=== PATIENT | female | born 1980 | race Caucasian/White ===

== ENCOUNTER 2023-10-06 15:37 | Inpatient (IN) | payer OTHER, SELFPAY ==
[~2023-10-06 15:37] MED LIST: Iopamidol-370 76% 500 ML MDV (1 ML CHARGE) ONE
[2023-10-06] MEDS ORDERED: HYDROmorphone 0.5 MG/0.5 ML SYRINGE ONE ×2 (15:49→19:36)
[2023-10-06 16:14] LABS: #Basophils 0.1 thou/uL (0.0-0.2); #Eosinphils 0.3 thou/uL (0.0-0.7); #Monocytes 1.3 thou/uL (0.11-0.59); %Basophils 0.4 % (0.0-1.0); %Eosinophils 1.4 % (0.0-10.0); %Monocytes 5.2 % (0.0-10.0); %Neutrophils 79.5 % (42.0-75.0); Hematocrit 42.6 % (36.0-47.0); Hemoglobin 13.2 g/dL (12.0-16.0); Mean Corpuscular Hemoglobin 29.5 pg (27.0-31.0); Mean Corpuscular Volume 95.1 fl (78.0-98.0); Mean Platelet Volume 9.3 fL (7.4-10.4); Platelet Count 349 10x3/uL (130-400); RBC Distribution Width 12.5 % (11.5-14.5); Red Blood Cell (RBC) Count 4.48 mill/uL (4.20-5.40); White Blood Cell (WBC) Count 23.9 10x3/uL (4.8-10.8)
[2023-10-06] MEDS ORDERED: Lidocaine 1% PF 5 ML VIAL ONE (16:15)
[2023-10-06] MEDS ORDERED: Ondansetron PF 4 MG/2 ML Vial ONE (16:15)
[2023-10-06] MEDS ORDERED: CEFAZOLIN 2 GM VIAL ONE (16:15)
[2023-10-06] MEDS ORDERED: Boostrix 0.5 ML (Tdap) VIAL (>/=7 yrs of age) ONE (16:16)
[2023-10-06] MEDS ORDERED: Sodium Chloride 0.9% 100 ML ONE (16:16)
[2023-10-06] MEDS ORDERED: Midazolam HCl 2 mg/2 ml Vial ONE (16:25)
[2023-10-06 16:42] LABS: ALT (SGPT) 39 U/L (8-55); AST (SGOT) 68 U/L (5-34); Acetaminophen Less than 10 mcg/mL (10.0-30.0); Albumin 3.4 g/dL (3.5-5.0); Alcohol Less than 10.0 mg/dL (Less than 10); Alkaline Phosphatase 121 U/L (40-110); Anion Gap 14 mmol/L (10-20); BUN (Urea Nitrogen) 10 mg/dL (7.0-18.7); Bilirubin, Total 0.3 mg/dL (0.2-1.2); Calc. Creatinine Clearance 0 mL/min (70-130); Calcium 8.1 mg/dL (7.8-10.44); Carbon Dioxide 18 mmol/L (22-29); Chloride 105 mmol/L (98-107); Estimated GFR 106; Globulin 2.7 g/dL (2.4-3.5); Glucose 147 mg/dL (70-105); Magnesium 1.8 mg/dL (1.6-2.6); Protein, Total 6.1 g/dL (6.0-8.3); Salicylate 8.2 mg/dL (15.0-30.0); Sodium 133 mmol/L (136-145)
[2023-10-06] MEDS ORDERED: traMADol HCl 50 MG TAB PO PRN (18:18)
[2023-10-06] MEDS ORDERED: Ondansetron PF 4 MG/2 ML Vial IVP PRN (18:19)
[2023-10-06] MEDS ORDERED: Morphine 2 MG/ML VIAL SLOW IVP PRN (18:19)
[2023-10-06] MEDS ORDERED: Sodium Chloride 0.9% 1,000 ML IV SCH (18:30)
[2023-10-06] MEDS: Acetaminophen 500 MG TAB PO SCH ×2 (20:30→23:43)
[2023-10-06] MEDS ORDERED: Ipratropium/Albuterol 3 ML NEB NEB SCH (21:00)
[2023-10-06] MEDS: Morphine 4 MG/ML VIAL SLOW IVP PRN (21:49)
[2023-10-06] MEDS: Amoxicillin/Potassium Clav 500 MG TAB PO SCH (21:49)
[2023-10-06] MEDS: Gabapentin 300 MG CAP PO SCH (21:50)
[2023-10-06] MEDS: Famotidine 20 MG TAB PO SCH (21:50)
[2023-10-06] MEDS: Cyclobenzaprine 10 MG TAB PO PRN (21:50)
[2023-10-06] MEDS: Sodium Chloride 0.9% 1,000 ML IV SCH (21:51)
[2023-10-06] MEDS: Senokot S 8.6-50 MG TAB PO SCH (21:52)
[2023-10-06] MEDS: traMADol HCl 50 MG TAB PO SCH (23:42)
[2023-10-06] MEDS ORDERED: Ketorolac Tromethamine 30 MG (1 mL) VIAL IVP SCH (23:59)
[2023-10-07 02:59] VITALS: BMI 45.8
[2023-10-07] MEDS: Morphine 4 MG/ML VIAL SLOW IVP PRN ×3 (04:46→08:40)
[2023-10-07] MEDS: Sodium Chloride 0.9% 1,000 ML IV SCH ×4 (04:46→21:14)
[2023-10-07] MEDS: Acetaminophen 500 MG TAB PO SCH ×3 (05:59→17:32)
[2023-10-07] MEDS: traMADol HCl 50 MG TAB PO SCH (05:59)
[2023-10-07] MEDS ORDERED: Ipratropium/Albuterol 3 ML NEB NEB SCH (07:30)
[2023-10-07] MEDS: Polyethylene Glycol 3350 17 GM Packet PO SCH (08:35)
[2023-10-07] MEDS: Gabapentin 300 MG CAP PO SCH ×3 (08:35→20:21)
[2023-10-07] MEDS: Senokot S 8.6-50 MG TAB PO SCH ×2 (08:35→20:20)
[2023-10-07] MEDS: Famotidine 20 MG TAB PO SCH ×2 (08:35→20:20)
[2023-10-07] MEDS: Amoxicillin/Potassium Clav 500 MG TAB PO SCH ×2 (08:35→20:20)
[2023-10-07] MEDS ORDERED: Naloxone HCl 0.4 mg/ml Vial IV PRN (08:44)
[2023-10-07] MEDS ORDERED: Ondansetron PF 4 MG/2 ML Vial IVP PRN (08:44)
[2023-10-07] MEDS ORDERED: HYDROmorphone/PF 10 MG in Sodium Chloride 0.9% 99 ML IV PRN (08:44)
[2023-10-07] MEDS ORDERED: Promethazine HCl 25 MG/ML VIAL IM PRN (08:44)
[2023-10-07] MEDS ORDERED: diphenhydrAMINE 50 MG/ML VIAL IM PRN (08:44)
[2023-10-07] MEDS ORDERED: Communication Order-Pharmacy FS SCH (08:45)
[2023-10-07 10:21] LABS: #Eosinphils 0.1 thou/uL (0.0-0.7); #Monocytes 0.9 thou/uL (0.11-0.59); #Neutrophils 7.4 thou/uL (1.40-6.50); %Basophils 0.2 % (0.0-1.0); %Eosinophils 0.8 % (0.0-10.0); %Lymphocytes 14.7 % (21.0-51.0); %Monocytes 8.6 % (0.0-10.0); %Neutrophils 75.3 % (42.0-75.0); Hemoglobin 11.4 g/dL (12.0-16.0); Mean Corpuscular HGB CONC 31.7 g/dL (32.0-36.0); Mean Corpuscular Hemoglobin 28.9 pg (27.0-31.0); Mean Platelet Volume 9.3 fL (7.4-10.4); Platelet Count 277 10x3/uL (130-400); RBC Distribution Width 12.8 % (11.5-14.5); Red Blood Cell (RBC) Count 3.94 mill/uL (4.20-5.40); White Blood Cell (WBC) Count 9.9 10x3/uL (4.8-10.8)
[2023-10-07 10:24] LABS: Mean Corpuscular Volume 91.4 fl (78.0-98.0)
[2023-10-07 10:39] LABS: Anion Gap 15 mmol/L (10-20); BUN (Urea Nitrogen) 12 mg/dL (7.0-18.7); CK (CPK) 3918 U/L (29-168); Calc. Creatinine Clearance 139 mL/min (70-130); Calcium 7.6 mg/dL (7.8-10.44); Carbon Dioxide 19 mmol/L (22-29); Chloride 105 mmol/L (98-107); Estimated GFR 81; Glucose 126 mg/dL (70-105); Potassium 4.5 mmol/L (3.5-5.1); Sodium 134 mmol/L (136-145)
[2023-10-07 10:39] LABS: PTT 28.9 sec (22.9-36.1)
[2023-10-07] MEDS ORDERED: Morphine 4 MG/ML VIAL SLOW IVP SCH (11:38)
[2023-10-07] MEDS: Ipratropium/Albuterol 3 ML NEB NEB SCH ×2 (13:47→19:04)
[2023-10-07] MEDS ORDERED: traMADol HCl 50 MG TAB PO SCH (18:00)
[2023-10-07] MEDS ORDERED: traMADol HCl 50 MG TAB PO PRN (19:44)
[2023-10-08] MEDS: Acetaminophen 500 MG TAB PO SCH ×2 (00:14→05:30)
[2023-10-08] MEDS: Cyclobenzaprine 10 MG TAB PO PRN (03:40)
[2023-10-08] MEDS: Morphine 2 MG/ML VIAL SLOW IVP PRN ×4 (03:43→20:14)
[2023-10-08] MEDS: Sodium Chloride 0.9% 1,000 ML IV SCH (05:01)
[2023-10-08] MEDS ORDERED: traMADol HCl 50 MG TAB PO SCH (06:00)
[2023-10-08] MEDS ORDERED: Acetaminophen/Codeine 30-300mg Tablet PO PRN (06:59)
[2023-10-08 07:23] LABS: Anion Gap 13 mmol/L (10-20); BUN (Urea Nitrogen) 7 mg/dL (7.0-18.7); CK (CPK) 106 U/L (29-168); Calc. Creatinine Clearance 130 mL/min (70-130); Calcium 8.8 mg/dL (7.8-10.44); Carbon Dioxide 28 mmol/L (22-29); Chloride 103 mmol/L (98-107); Estimated GFR 75; Glucose 78 mg/dL (70-105); Magnesium 2.1 mg/dL (1.6-2.6); Phosphorus 2.9 mg/dL (2.3-4.7); Potassium 3.5 mmol/L (3.5-5.1); Sodium 140 mmol/L (136-145)
[2023-10-08] MEDS: Ipratropium/Albuterol 3 ML NEB NEB SCH ×3 (07:45→18:52)
[2023-10-08] MEDS: Polyethylene Glycol 3350 17 GM Packet PO SCH (08:29)
[2023-10-08] MEDS: Amoxicillin/Potassium Clav 500 MG TAB PO SCH ×2 (08:29→20:14)
[2023-10-08] MEDS: Gabapentin 300 MG CAP PO SCH ×3 (08:30→20:15)
[2023-10-08] MEDS: Saccharomyces boulardii 250 MG CAP PO SCH (08:30)
[2023-10-08] MEDS: Famotidine 20 MG TAB PO SCH ×2 (08:31→20:15)
[2023-10-08] MEDS: DULoxetine 30 MG CAP PO SCH (08:31)
[2023-10-08] MEDS: Senokot S 8.6-50 MG TAB PO SCH ×2 (08:31→20:14)
[2023-10-08] MEDS ORDERED: Enoxaparin 40 MG (0.4 mL) SYRINGE SC SCH (09:00)
[2023-10-08 09:55] LABS: #Basophils 0.1 thou/uL (0.0-0.2); #Monocytes 1.2 thou/uL (0.11-0.59); %Basophils 0.4 % (0.0-1.0); %Eosinophils 0.3 % (0.0-10.0); %Lymphocytes 10.5 % (21.0-51.0); %Monocytes 10.4 % (0.0-10.0); %Neutrophils 77.8 % (42.0-75.0); Hematocrit 28.9 % (36.0-47.0); Hemoglobin 9.1 g/dL (12.0-16.0); Mean Corpuscular HGB CONC 31.5 g/dL (32.0-36.0); Mean Corpuscular Hemoglobin 29.5 pg (27.0-31.0); Mean Corpuscular Volume 93.8 fl (78.0-98.0); Mean Platelet Volume 9.5 fL (7.4-10.4); Platelet Count 203 10x3/uL (130-400); RBC Distribution Width 12.8 % (11.5-14.5); Red Blood Cell (RBC) Count 3.08 mill/uL (4.20-5.40); White Blood Cell (WBC) Count 11.6 10x3/uL (4.8-10.8)
[2023-10-08] MEDS ORDERED: HYDROcodone/Acetaminophen 5/325 mg Tablet PO SCH (10:30)
[2023-10-08] MEDS: HYDROcodone/Acetaminophen 5/325 mg Tablet PO SCH ×4 (10:41→22:27)
[2023-10-08] MEDS ORDERED: Acetaminophen 325 MG TAB PO SCH ×2 (12:00)
[2023-10-09] MEDS: Morphine 2 MG/ML VIAL SLOW IVP PRN ×5 (01:32→19:59)
[2023-10-09] MEDS: HYDROcodone/Acetaminophen 5/325 mg Tablet PO SCH ×6 (02:36→22:54)
[2023-10-09 06:58] LABS: #Eosinphils 0.1 thou/uL (0.0-0.7); #Monocytes 1.4 thou/uL (0.11-0.59); #Neutrophils 13.4 thou/uL (1.40-6.50); %Basophils 0.3 % (0.0-1.0); %Eosinophils 0.4 % (0.0-10.0); %Lymphocytes 5.3 % (21.0-51.0); %Monocytes 8.9 % (0.0-10.0); %Neutrophils 84.3 % (42.0-75.0); Hematocrit 29.8 % (36.0-47.0); Hemoglobin 9.5 g/dL (12.0-16.0); Mean Corpuscular HGB CONC 31.9 g/dL (32.0-36.0); Mean Corpuscular Hemoglobin 28.7 pg (27.0-31.0); Mean Platelet Volume 9.7 fL (7.4-10.4); Platelet Count 255 10x3/uL (130-400); RBC Distribution Width 12.9 % (11.5-14.5); Red Blood Cell (RBC) Count 3.31 mill/uL (4.20-5.40); White Blood Cell (WBC) Count 15.9 10x3/uL (4.8-10.8)
[2023-10-09] MEDS ORDERED: Lidocaine 1% (PF) 30 ML VIAL ONE (07:14)
[2023-10-09] MEDS ORDERED: Bupivacaine PF 0.5% 30 ML VIAL FS SCH (07:30)
[2023-10-09] MEDS: Ipratropium/Albuterol 3 ML NEB NEB SCH ×3 (07:58→22:40)
[2023-10-09] MEDS ORDERED: Enoxaparin 40 MG (0.4 mL) SYRINGE SC SCH ×2 (09:00)
[2023-10-09] MEDS: Famotidine 20 MG TAB PO SCH ×2 (09:43→19:59)
[2023-10-09] MEDS: Amoxicillin/Potassium Clav 500 MG TAB PO SCH ×2 (09:43→19:59)
[2023-10-09] MEDS: DULoxetine 30 MG CAP PO SCH (09:43)
[2023-10-09] MEDS: Saccharomyces boulardii 250 MG CAP PO SCH (09:43)
[2023-10-09] MEDS: Gabapentin 300 MG CAP PO SCH ×3 (09:43→19:59)
[2023-10-09] MEDS: Polyethylene Glycol 3350 17 GM Packet PO SCH (09:44)
[2023-10-09] MEDS: Senokot S 8.6-50 MG TAB PO SCH ×2 (09:44→20:00)
[2023-10-09] MEDS: Cyclobenzaprine 10 MG TAB PO PRN ×2 (12:50→19:59)
[2023-10-10] MEDS: HYDROcodone/Acetaminophen 5/325 mg Tablet PO SCH ×3 (02:54→10:25)
[2023-10-10] MEDS: Ipratropium/Albuterol 3 ML NEB NEB SCH ×3 (07:42→18:51)
[2023-10-10 08:06] LABS: #Eosinphils 0.3 thou/uL (0.0-0.7); #Monocytes 1.2 thou/uL (0.11-0.59); #Neutrophils 11.3 thou/uL (1.40-6.50); %Basophils 0.2 % (0.0-1.0); %Eosinophils 1.9 % (0.0-10.0); %Lymphocytes 6.6 % (21.0-51.0); %Monocytes 8.7 % (0.0-10.0); %Neutrophils 81.9 % (42.0-75.0); Hematocrit 27.9 % (36.0-47.0); Hemoglobin 8.9 g/dL (12.0-16.0); Mean Corpuscular HGB CONC 31.9 g/dL (32.0-36.0); Mean Corpuscular Hemoglobin 29.4 pg (27.0-31.0); Mean Corpuscular Volume 92.1 fl (78.0-98.0); Mean Platelet Volume 9.8 fL (7.4-10.4); Platelet Count 288 10x3/uL (130-400); RBC Distribution Width 13.2 % (11.5-14.5); Red Blood Cell (RBC) Count 3.03 mill/uL (4.20-5.40); White Blood Cell (WBC) Count 13.7 10x3/uL (4.8-10.8)
[2023-10-10 08:29] LABS: ALT (SGPT) 30 U/L (8-55); AST (SGOT) 24 U/L (5-34); Albumin 2.7 g/dL (3.5-5.0); Alkaline Phosphatase 88 U/L (40-110); Anion Gap 11 mmol/L (10-20); BUN (Urea Nitrogen) 6 mg/dL (7.0-18.7); Calc. Creatinine Clearance 223 mL/min (70-130); Calcium 7.8 mg/dL (7.8-10.44); Carbon Dioxide 26 mmol/L (22-29); Chloride 98 mmol/L (98-107); Estimated GFR 115; Globulin 2.8 g/dL (2.4-3.5); Glucose 146 mg/dL (70-105); Potassium 3.9 mmol/L (3.5-5.1); Protein, Total 5.5 g/dL (6.0-8.3); Sodium 131 mmol/L (136-145)
[2023-10-10] MEDS: Polyethylene Glycol 3350 17 GM Packet PO SCH (08:34)
[2023-10-10] MEDS: Senokot S 8.6-50 MG TAB PO SCH ×2 (08:34→20:45)
[2023-10-10] MEDS: Cyclobenzaprine 10 MG TAB PO PRN ×2 (08:35→20:44)
[2023-10-10] MEDS: Saccharomyces boulardii 250 MG CAP PO SCH (08:35)
[2023-10-10] MEDS: Famotidine 20 MG TAB PO SCH ×2 (08:35→20:44)
[2023-10-10] MEDS: DULoxetine 30 MG CAP PO SCH (08:35)
[2023-10-10] MEDS: Gabapentin 300 MG CAP PO SCH ×3 (08:35→20:44)
[2023-10-10] MEDS: Enoxaparin 40 MG (0.4 mL) SYRINGE SC SCH (08:35)
[2023-10-10] MEDS: Amoxicillin/Potassium Clav 500 MG TAB PO SCH ×2 (08:36→20:44)
[2023-10-10] MEDS: Morphine 2 MG/ML VIAL SLOW IVP PRN (11:17)
[2023-10-10] MEDS ORDERED: Zolpidem Tartrate 5 MG TAB PO PRN (12:15)
[2023-10-10] MEDS ORDERED: Naloxone HCl 0.4 mg/ml Vial IV PRN (12:15)
[2023-10-10] MEDS ORDERED: diphenhydrAMINE 25 MG CAP PO PRN (12:15)
[2023-10-10] MEDS ORDERED: Promethazine HCl 25 MG/ML VIAL IM PRN (12:15)
[2023-10-10] MEDS ORDERED: diphenhydrAMINE 50 MG/ML VIAL IM/IV PRN (12:15)
[2023-10-10] MEDS ORDERED: Ondansetron PF 4 MG/2 ML Vial IVP PRN (12:15)
[2023-10-10] MEDS: HYDROmorphone/PF 10 MG in Sodium Chloride 0.9% 99 ML IVPB PRN (12:58)
[2023-10-11 07:46] LABS: #Eosinphils 0.2 thou/uL (0.0-0.7); #Monocytes 1.3 thou/uL (0.11-0.59); #Neutrophils 9.6 thou/uL (1.40-6.50); %Basophils 0.2 % (0.0-1.0); %Eosinophils 1.5 % (0.0-10.0); %Lymphocytes 8.8 % (21.0-51.0); %Monocytes 10.4 % (0.0-10.0); %Neutrophils 77.6 % (42.0-75.0); Hematocrit 26.6 % (36.0-47.0); Hemoglobin 8.5 g/dL (12.0-16.0); Mean Corpuscular Hemoglobin 29.2 pg (27.0-31.0); Mean Corpuscular Volume 91.4 fl (78.0-98.0); Mean Platelet Volume 9.4 fL (7.4-10.4); Platelet Count 283 10x3/uL (130-400); RBC Distribution Width 13.5 % (11.5-14.5); Red Blood Cell (RBC) Count 2.91 mill/uL (4.20-5.40); White Blood Cell (WBC) Count 12.4 10x3/uL (4.8-10.8)
[2023-10-11] MEDS: Ipratropium/Albuterol 3 ML NEB NEB SCH ×3 (07:53→22:35)
[2023-10-11 08:11] LABS: Anion Gap 13 mmol/L (10-20); BUN (Urea Nitrogen) 6 mg/dL (7.0-18.7); Calc. Creatinine Clearance 240 mL/min (70-130); Calcium 7.6 mg/dL (7.8-10.44); Carbon Dioxide 24 mmol/L (22-29); Chloride 97 mmol/L (98-107); Estimated GFR 117; Glucose 119 mg/dL (70-105); Potassium 3.7 mmol/L (3.5-5.1); Sodium 130 mmol/L (136-145)
[2023-10-11] MEDS: Amoxicillin/Potassium Clav 500 MG TAB PO SCH ×2 (09:12→22:35)
[2023-10-11] MEDS: Senokot S 8.6-50 MG TAB PO SCH ×2 (09:12→22:34)
[2023-10-11] MEDS: Famotidine 20 MG TAB PO SCH ×2 (09:13→22:35)
[2023-10-11] MEDS: Enoxaparin 40 MG (0.4 mL) SYRINGE SC SCH (09:13)
[2023-10-11] MEDS: Gabapentin 300 MG CAP PO SCH ×3 (09:13→22:34)
[2023-10-11] MEDS: DULoxetine 30 MG CAP PO SCH (09:13)
[2023-10-11] MEDS: Saccharomyces boulardii 250 MG CAP PO SCH (09:13)
[2023-10-11] MEDS: Polyethylene Glycol 3350 17 GM Packet PO SCH (09:14)
[2023-10-11] MEDS: Cyclobenzaprine 10 MG TAB PO PRN (09:15)
[2023-10-12] MEDS: HYDROmorphone/PF 10 MG in Sodium Chloride 0.9% 99 ML IVPB PRN (05:41)
[2023-10-12] MEDS: Amoxicillin/Potassium Clav 500 MG TAB PO SCH ×2 (09:09→20:31)
[2023-10-12] MEDS: Famotidine 20 MG TAB PO SCH ×2 (09:09→20:31)
[2023-10-12] MEDS: Saccharomyces boulardii 250 MG CAP PO SCH (09:09)
[2023-10-12] MEDS: DULoxetine 30 MG CAP PO SCH (09:10)
[2023-10-12] MEDS: Gabapentin 300 MG CAP PO SCH ×3 (09:10→20:31)
[2023-10-12] MEDS: Enoxaparin 40 MG (0.4 mL) SYRINGE SC SCH (09:11)
[2023-10-12] MEDS: Polyethylene Glycol 3350 17 GM Packet PO SCH (09:11)
[2023-10-12] MEDS: Senokot S 8.6-50 MG TAB PO SCH ×2 (09:11→20:35)
[2023-10-12] MEDS ORDERED: traMADol HCl 50 MG TAB PO PRN (09:38)
[2023-10-12] MEDS: Ipratropium/Albuterol 3 ML NEB NEB SCH ×3 (09:54→23:12)
[2023-10-12] MEDS: HYDROcodone/Acetaminophen 10/325 mg Tablet PO PRN ×4 (13:34→22:20)
[2023-10-12] MEDS: Cyclobenzaprine 10 MG TAB PO PRN (20:31)
[2023-10-13] MEDS: HYDROcodone/Acetaminophen 10/325 mg Tablet PO PRN ×4 (03:32→20:22)
[2023-10-13] MEDS: Cyclobenzaprine 10 MG TAB PO PRN ×2 (03:33→17:20)
[2023-10-13 04:05] LABS: #Eosinphils 0.4 thou/uL (0.0-0.7); #Monocytes 0.8 thou/uL (0.11-0.59); #Neutrophils 6.5 thou/uL (1.40-6.50); %Basophils 0.4 % (0.0-1.0); %Lymphocytes 15.8 % (21.0-51.0); %Monocytes 8.1 % (0.0-10.0); %Neutrophils 69.4 % (42.0-75.0); Hematocrit 25.9 % (36.0-47.0); Hemoglobin 8.2 g/dL (12.0-16.0); Mean Corpuscular HGB CONC 31.7 g/dL (32.0-36.0); Mean Corpuscular Hemoglobin 28.9 pg (27.0-31.0); Mean Corpuscular Volume 91.2 fl (78.0-98.0); Mean Platelet Volume 9.4 fL (7.4-10.4); Platelet Count 283 10x3/uL (130-400); RBC Distribution Width 13.9 % (11.5-14.5); Red Blood Cell (RBC) Count 2.84 mill/uL (4.20-5.40); White Blood Cell (WBC) Count 9.4 10x3/uL (4.8-10.8)
[2023-10-13 04:26] LABS: Anion Gap 11 mmol/L (10-20); BUN (Urea Nitrogen) 5 mg/dL (7.0-18.7); Calc. Creatinine Clearance 227 mL/min (70-130); Calcium 7.7 mg/dL (7.8-10.44); Carbon Dioxide 26 mmol/L (22-29); Chloride 101 mmol/L (98-107); Estimated GFR 116; Glucose 115 mg/dL (70-105); Potassium 3.3 mmol/L (3.5-5.1); Sodium 135 mmol/L (136-145)
[2023-10-13] MEDS: Ipratropium/Albuterol 3 ML NEB NEB SCH ×3 (08:12→20:38)
[2023-10-13] MEDS: fentaNYL 50 mcg/mL 1 mL Vial SLOW IVP PRN ×2 (09:37→17:19)
[2023-10-13] MEDS: Saccharomyces boulardii 250 MG CAP PO SCH (09:44)
[2023-10-13] MEDS: Amoxicillin/Potassium Clav 500 MG TAB PO SCH ×2 (09:45→20:20)
[2023-10-13] MEDS: Famotidine 20 MG TAB PO SCH ×2 (09:45→20:21)
[2023-10-13] MEDS: DULoxetine 30 MG CAP PO SCH (09:45)
[2023-10-13] MEDS: Gabapentin 300 MG CAP PO SCH ×3 (09:45→20:20)
[2023-10-13] MEDS: Enoxaparin 40 MG (0.4 mL) SYRINGE SC SCH (09:45)
[2023-10-13] MEDS: Polyethylene Glycol 3350 17 GM Packet PO SCH (09:46)
[2023-10-13] MEDS: Senokot S 8.6-50 MG TAB PO SCH ×2 (09:46→20:21)
[2023-10-14] MEDS: HYDROcodone/Acetaminophen 10/325 mg Tablet PO PRN ×4 (00:55→19:12)
[2023-10-14] MEDS: traMADol HCl 50 MG TAB PO PRN ×3 (03:00→21:22)
[2023-10-14] MEDS: Cyclobenzaprine 10 MG TAB PO PRN ×2 (03:00→21:24)
[2023-10-14] MEDS: DULoxetine 30 MG CAP PO SCH (08:22)
[2023-10-14] MEDS: Saccharomyces boulardii 250 MG CAP PO SCH (08:22)
[2023-10-14] MEDS: Enoxaparin 40 MG (0.4 mL) SYRINGE SC SCH (08:22)
[2023-10-14] MEDS: Gabapentin 300 MG CAP PO SCH ×3 (08:23→20:34)
[2023-10-14] MEDS: Famotidine 20 MG TAB PO SCH ×2 (08:23→20:34)
[2023-10-14] MEDS: Polyethylene Glycol 3350 17 GM Packet PO SCH (08:23)
[2023-10-14] MEDS: Senokot S 8.6-50 MG TAB PO SCH ×2 (08:24→20:35)
[2023-10-14] MEDS: Ipratropium/Albuterol 3 ML NEB NEB SCH ×3 (10:31→19:57)
[2023-10-14] MEDS: fentaNYL 50 mcg/mL 1 mL Vial SLOW IVP PRN (17:24)
[2023-10-15] MEDS: HYDROcodone/Acetaminophen 10/325 mg Tablet PO PRN ×4 (00:11→19:10)
[2023-10-15] MEDS: traMADol HCl 50 MG TAB PO PRN ×3 (02:53→16:57)
[2023-10-15] MEDS: Ipratropium/Albuterol 3 ML NEB NEB SCH ×3 (07:05→19:33)
[2023-10-15] MEDS: Enoxaparin 40 MG (0.4 mL) SYRINGE SC SCH (07:54)
[2023-10-15] MEDS: Famotidine 20 MG TAB PO SCH ×2 (07:54→21:20)
[2023-10-15] MEDS: DULoxetine 30 MG CAP PO SCH (07:54)
[2023-10-15] MEDS: Saccharomyces boulardii 250 MG CAP PO SCH (07:54)
[2023-10-15] MEDS: Gabapentin 300 MG CAP PO SCH ×3 (07:55→21:21)
[2023-10-15] MEDS: Senokot S 8.6-50 MG TAB PO SCH ×2 (07:55→21:21)
[2023-10-15] MEDS: Polyethylene Glycol 3350 17 GM Packet PO SCH (07:55)
[2023-10-15] MEDS: Cyclobenzaprine 10 MG TAB PO PRN ×2 (07:59→21:20)
[2023-10-16] MEDS: HYDROcodone/Acetaminophen 10/325 mg Tablet PO PRN ×6 (00:22→23:52)
[2023-10-16 08:15] LABS: #Eosinphils 0.6 thou/uL (0.0-0.7); #Monocytes 0.7 thou/uL (0.11-0.59); #Neutrophils 7.9 thou/uL (1.40-6.50); %Basophils 0.3 % (0.0-1.0); %Eosinophils 5.6 % (0.0-10.0); %Lymphocytes 13.7 % (21.0-51.0); %Monocytes 6.3 % (0.0-10.0); %Neutrophils 69.9 % (42.0-75.0); Hematocrit 26.6 % (36.0-47.0); Hemoglobin 8.3 g/dL (12.0-16.0); Mean Corpuscular HGB CONC 31.2 g/dL (32.0-36.0); Mean Corpuscular Hemoglobin 29.6 pg (27.0-31.0); Mean Platelet Volume 9.3 fL (7.4-10.4); Platelet Count 333 10x3/uL (130-400); RBC Distribution Width 15.5 % (11.5-14.5); White Blood Cell (WBC) Count 11.4 10x3/uL (4.8-10.8)
[2023-10-16 08:56] LABS: ALT (SGPT) 21 U/L (8-55); AST (SGOT) 22 U/L (5-34); Albumin 2.9 g/dL (3.5-5.0); Alkaline Phosphatase 118 U/L (40-110); Anion Gap 12 mmol/L (10-20); BUN (Urea Nitrogen) 6 mg/dL (7.0-18.7); Bilirubin, Total 0.7 mg/dL (0.2-1.2); Calc. Creatinine Clearance 223 mL/min (70-130); Calcium 8.3 mg/dL (7.8-10.44); Carbon Dioxide 27 mmol/L (22-29); Chloride 101 mmol/L (98-107); Estimated GFR 115; Globulin 2.9 g/dL (2.4-3.5); Glucose 100 mg/dL (70-105); Potassium 3.9 mmol/L (3.5-5.1); Protein, Total 5.8 g/dL (6.0-8.3); Sodium 136 mmol/L (136-145)
[2023-10-16] MEDS: Famotidine 20 MG TAB PO SCH ×2 (09:26→21:35)
[2023-10-16] MEDS: Enoxaparin 40 MG (0.4 mL) SYRINGE SC SCH (09:27)
[2023-10-16] MEDS: DULoxetine 30 MG CAP PO SCH (09:27)
[2023-10-16] MEDS: Saccharomyces boulardii 250 MG CAP PO SCH (09:27)
[2023-10-16] MEDS: Senokot S 8.6-50 MG TAB PO SCH ×2 (09:28→21:35)
[2023-10-16] MEDS: Polyethylene Glycol 3350 17 GM Packet PO SCH (09:28)
[2023-10-16] MEDS: Gabapentin 300 MG CAP PO SCH ×3 (09:28→21:34)
[2023-10-16] MEDS: Ipratropium/Albuterol 3 ML NEB NEB SCH ×2 (10:53→13:58)
[2023-10-16] MEDS ORDERED: Ipratropium/Albuterol 3 ML NEB NEB PRN (14:20)
[2023-10-16] MEDS: Cyclobenzaprine 10 MG TAB PO PRN ×2 (15:16→21:35)
[2023-10-17] MEDS: HYDROcodone/Acetaminophen 10/325 mg Tablet PO PRN ×2 (06:41→13:33)
[2023-10-17] MEDS: Cyclobenzaprine 10 MG TAB PO PRN (06:41)
[2023-10-17] MEDS: Senokot S 8.6-50 MG TAB PO SCH (09:41)
[2023-10-17] MEDS: Gabapentin 300 MG CAP PO SCH (09:41)
[2023-10-17] MEDS: Enoxaparin 40 MG (0.4 mL) SYRINGE SC SCH (09:42)
[2023-10-17] MEDS: Famotidine 20 MG TAB PO SCH (09:42)
[2023-10-17] MEDS: Polyethylene Glycol 3350 17 GM Packet PO SCH ×2 (09:42→09:51)
[2023-10-17] MEDS: Saccharomyces boulardii 250 MG CAP PO SCH (09:42)
[2023-10-17] MEDS: DULoxetine 30 MG CAP PO SCH (09:42)
[2023-10-17 13:04] VITALS: BP 137/76; TEMP 98
== END 2023-10-17 14:21 | disposition home or self-care (01) | DRG 157 ==
LOC: ERS 15:37 → SURG A 18:22
PROVIDERS: ADMIT Surgery; ATTEND Surgery
PROC: 0W9930Z Drainage of Right Pleural Cavity with Drainage Device, Percutaneous Approach (ICD-10-PCS; principal; 2023-10-09)
DX: S02.40DA Maxillary fracture, left side, initial encounter for closed fracture (principal); S27.2XXA Traumatic hemopneumothorax, initial encounter; S22.41XA Multiple fractures of ribs, right side, initial encounter for closed fracture; S22.088A Other fracture of T11-T12 vertebra, initial encounter for closed fracture; S12.690A Other displaced fracture of seventh cervical vertebra, initial encounter for closed fracture; S22.20XA Unspecified fracture of sternum, initial encounter for closed fracture; Z68.42 Body mass index [BMI] 45.0-49.9, adult; S22.078A Other fracture of T9-T10 vertebra, initial encounter for closed fracture; I10 Essential (primary) hypertension; F17.210 Nicotine dependence, cigarettes, uncomplicated; S42.111A Displaced fracture of body of scapula, right shoulder, initial encounter for closed fracture; E66.01 Morbid (severe) obesity due to excess calories; Z88.8 Allergy status to other drugs, medicaments and biological substances; Z90.49 Acquired absence of other specified parts of digestive tract; Z98.890 Other specified postprocedural states; V49.9XXA Car occupant (driver) (passenger) injured in unspecified traffic accident, initial encounter
CPT/HCPCS: 12004; 12015; 36415; 70450; 70486; 71045; 71250; 71260; 72072; 72125; 74177; 80048; 80053; 80307; 82550; 83735; 84100; 85025; 85610; 85730; 86850; 86900; 86901; 90471; 90715; 94640; 96365; 96375; 96376; G0390; J1170; J1650; J2001; J2250; J2270; J2272; J2405; J3010; J3490; J7050; J7620; Q9967; S0020

== ENCOUNTER 2023-12-07 16:49 | Emergency (ER) | payer SELFPAY | END 2023-12-07 18:38 | disposition home or self-care (01) | LOC: ERS 16:49 | DX: S22.009A Unspecified fracture of unspecified thoracic vertebra, initial encounter for closed fracture (principal); F17.210 Nicotine dependence, cigarettes, uncomplicated; V89.2XXA Person injured in unspecified motor-vehicle accident, traffic, initial encounter | CPT/HCPCS: 72072 ==